=== PATIENT | female | born 1930 | race African-American/Black ===

== ENCOUNTER 2022-02-17 09:43 | Emergency (ER) | payer BC, OTHER ==
[~2022-02-17] VITALS: Ht 154.9 cm; Wt 73.0 kg
[~2022-02-17 09:43] MED LIST: ALEN70TA79 PO; AMLO10TA80 PO; BACL20TA PO; BENA1TAB18 PO; CHOL100046 PO; CYAN-50 PO; OMEP20CA14 PO; SUMA100T16 PO; TRAM50TA3 PO
[2022-02-17 11:15] LABS: CLARITY URINE CLEAR (CLEAR); COLOR URINE YELLOW (YELLOW); KETONES URINE NEGATIVE (NEGATIVE); LEUKOCYTE ESTERASE URINE TRACE (NEGATIVE); NITRITE URINE NEGATIVE (NEGATIVE); OCCULT BLOOD URINE NEGATIVE (NEGATIVE); PROTEIN URINE NEGATIVE (NEGATIVE); SPECIFIC GRAVITY URINE 1.006 (1.005-1.030); UROBILINOGEN URINE 0.2 E.U./dL (0.2-1.0)
[2022-02-17 12:09] LABS: BASOPHILS % 1.1 % (0.0-2.0); HEMATOCRIT. 37.1 % (36.0-48.0); HEMOGLOBIN. 11.9 g/dL (12.0-16.0); LYMPHOCYTES % 20.6 % (20.0-50.0); MEAN CORPUSCULAR VOLUME 83.9 fL (81.0-99.0); MEAN PLATELET VOLUME 9.6 fl (7.4-10.4); MONOCYTES % 5.4 % (2.0-8.0); NEUTROPHILS % 70.9 % (40.0-76.0); PLATELET 195 x1000/uL (130-400); RED BLOOD CELL COUNT 4.42 mill/uL (4.2-5.4)
[2022-02-17 12:19] LABS: CHLORIDE 110 mEq/L (98-107)
[2022-02-17 12:45] LABS: PROTHROMBIN TIME 10.9 sec (9.6-11.0)
[2022-02-17] MEDS ORDERED: TOPUD MT (14:54)
[2022-02-17 15:52] VITALS: BP 181/88
== END 2022-02-17 15:50 | disposition admitted as inpatient to this hospital (09) ==
LOC: ER 09:43 → EDBEDREQ 10:32 → ER 15:50 → CANBEDREQ 18:20
DX: S20.211A Contusion of right front wall of thorax, initial encounter (principal); I11.0 Hypertensive heart disease with heart failure; I50.9 Heart failure, unspecified; R51.9 Headache, unspecified; Z79.899 Other long term (current) drug therapy; W18.30XA Fall on same level, unspecified, initial encounter; Y93.89 Activity, other specified; Y92.89 Other specified places as the place of occurrence of the external cause; Y99.8 Other external cause status
CPT/HCPCS: 36415; 71045; 71100; 80053; 81003; 83880; 84484; 85025; 93005; 99285